=== PATIENT | female | born 1980 | race Caucasian/White ===

== ENCOUNTER → 2018-06-13 | Outpatient (CLI) | payer OTHER ==
[~2018-06-13] MED LIST: DOXYCYCLINE HY100 MG PO
== END | disposition home or self-care (01) ==
LOC: SONOGRAMA 13:03 → MAMO-SONO 14:15
DX: O02.1 Missed abortion (principal); Z34.01 Encounter for supervision of normal first pregnancy, first trimester

== ENCOUNTER 2018-06-14 06:52 | Day surgery (SDC) | payer OTHER ==
[2018-06-14] MEDS ORDERED: DOXYCYCLINE HY100 MG PO (11:09)
== END 2018-06-14 17:40 | disposition home or self-care (01) ==
LOC: CIR.AMB 06:52
DX: O02.1 Missed abortion (principal); Z3A.09 9 weeks gestation of pregnancy